=== PATIENT | male | born 1985 | race Caucasian/White ===

== ENCOUNTER 2020-05-22 07:02 | Emergency (ER) | payer MEDICARE, MEDICAID, SELFPAY ==
[2020-05-22 07:03] VITALS: BP 195/122; PULSE 67; RESP 20; TEMP 36.6; O2SAT 99; BMI 48.8
--- NOTE | 2020-05-22 07:08 | ECG_ITS ---
[facility] Test Date: 2020-05-22 Pat Name: Jasson Gutierrez Department: Room: Gender: Male Dominatrix: : 1985 Requested By: Ayanna Chau Order Number: [id number] Shayne MD: Tona Parra M.D. Measurements Intervals [place] Rate: 65 P: 58 [place]: 169 QRS: 45 QRSD: 110 T: 23 QT: 408 QTc: 427 Interpretive Statements SINUS RHYTHM WITH SINUS ARRHYTHMIA POSSIBLE LEFT ATRIAL ENLARGEMENT [-0.1mV P WAVE IN V1/V2] POSSIBLE RIGHT VENTRICULAR CONDUCTION DELAY [RSR (QR) IN V1/V2] No previous ECG available for comparison Electronically Signed On 05-22-2020 19:17:16 CDT by Tona Parra M.D. [id number]
--- NOTE | 2020-05-22 07:08 | US_ITS ---
WS: [id number] ULTRASOUND ABDOMEN LIMITED CLINICAL INFORMATION: abd pain COMPARISON: None. FINDINGS: Technically difficult examination due to body habitus Liver Size: Enlarged Craniocaudal length: 19.0 cm. Echogenicity: Coarse Surface nodularity: None. Mass (size and location): None. Bile ducts Intrahepatic ducts: Normal. Hydropic gallbladder Cholelithiasis Gallstones: Present Gallbladder sludge: None. Gallbladder wall thickening: None. Pericholecystic fluid: None. Sonographic Lynn sign: Absent. Pancreas Normal as visualized. Right kidney: Normal. Hydronephrosis: None. Size: 13.0 cm x 5.4 cm x 6.1 cm. Abdominal aorta and IVC Visualized portions are normal. Ascites: None. US/US abdomen limited [id number] IMPRESSION: 1. Fatty enlarged liver. 2. Cholelithiasis with gallbladder distention. No gallbladder wall thickening. 3. Common bile duct not identified. 4. No hydronephrosis in right kidney 5. Technically difficult examination due to body habitus.
--- NOTE | 2020-05-22 07:08 | XRR_ITS ---
PROCEDURE INFORMATION: Exam: XR Chest, 1 View Exam date and time: 05/22/2020 7:21 AM Age: 34 years old Clinical indication: Abd pain TECHNIQUE: Imaging protocol: XR of the chest Views: 1 view. COMPARISON: No relevant prior studies available. FINDINGS: Lungs: No lung consolidation or pulmonary edema. Evidence of prior left-sided pulmonary granulomatous disease. Pleural space: No pleural effusion or pneumothorax. Heart/Mediastinum: The cardiac silhouette is not enlarged. The mediastinal contours are normal. Bones/joints: No acute osseous abnormality. Intraperitoneal space: No pneumoperitoneum. XR/XR chest 1V portable [id number] IMPRESSION: No acute abnormality.
--- NOTE | 2020-05-22 07:10 | W.ED.ABDPA2 ---
HPI - Abdominal Pain General: Chief Complaint: Abdominal Pain Stated Complaint: ABD PAIN Time Seen by Provider: 05/22/20 07:05 Source: patient and EMS Mode of arrival: EMS Limitations: no limitations History of Present Illness: HPI narrative: 34-year-old male states of last 4 to 5 hours had epigastric abdominal pain. He states he ate a large meal last night including deer meat and rooms. He states that he has had this sharp pain in the epigastric region. Denies any vomiting. He denies any chest pain. He has had no fever. MD elicited complaint: abdominal pain Pertinent past history: none Onset (ago): hour(s) Location: Epigastric Severity: moderate Quality: sharp Radiation: none Migration to: no migration Exacerbating factors: eating Relieving factors: nothing Associated Symptoms: Reports nausea; Denies chills, dysuria and fever(s) Review of Systems Const: Denies: fever(s), chills, body aches or change in appetite Eyes: Denies: blurry vision or eye discomfort ENMT: Denies: throat pain or dental pain Card: Denies: chest pain Resp: Denies: dyspnea GI: Reports: abdominal pain and nausea : Denies: dysuria Musc: Denies: neck pain or back pain Skin/Breast: Denies: rash Neuro: Denies: headache(s) Psych: Denies: depression Dc/Lymph: Denies: easy bruising All/Imm: Denies: urticaria PFSH ED PFSH: Family History Family/Other Cancer Diabetes Hypertension Denies family history of CAD (coronary artery disease) Clotting disorder Dementia Hyperlipidemia Psychiatric illness Chronic kidney disease (CKD) Suicide Anesthesia complication Bleeding disorder Family history of premature coronary artery disease Lung disease Stroke Social History Smoking and tobacco status: never smoked Alcohol intake: never Current occupational status: disabled Physical Exam Const: COMMON NORMALS: no acute distress, patient oriented x3 and healthy appearing HENMT: COMMON NORMALS: normocephalic and atraumatic HEAD & SCALP: normocephalic and atraumatic Eye: COMMON NORMALS: Equal, round and reactive pupils present and EOMs intact bilaterally PUPIL: Yes Equal, round and reactive pupils present Neck/C-Spine: COMMON NORMALS: full ROM and supple Chest: COMMONS NORMALS: normal inspection of the chest and normal palpation of entire chest wall Resp: COMMON NORMALS: normal respiratory effort, No retractions, No use of accessory muscles and clear to auscultation bilaterally AUSCULTATION: clear to auscultation bilaterally Cardio: COMMON NORMALS: regular rate, regular rhythm and No murmurs present (Cardio) RATE: regular rate RHYTHM: regular rhythm GI: COMMON NORMALS: Normal to inspection, nondistended, normoactive bowel sounds present, Soft to palpation and no masses PALPATION: Yes Soft to palpation OTHER: Epigastric and right upper quadrant tenderness Extremity: COMMON NORMALS: normal to inspection and full ROM Neuro: COMMON NORMALS: patient oriented x3, moves all extremities and no focal motor deficits Psych: COMMON NORMALS: mental status grossly normal, Normal thought process present and cooperative THOUGHT PROCESS: Normal thought process present Skin: COMMON NORMALS: no rashes or lesions noted and no wounds GENERAL SKIN EXAM: no rashes or lesions noted Course Vital Signs: Vital signs: Vital Signs Temperature 97.8 F 05/22/20 07:03 Pulse Rate 84 05/22/20 08:10 Respiratory Rate 22 H 05/22/20 08:50 Blood Pressure 197/117 05/22/20 08:10 Pulse Oximetry 98 05/22/20 08:50 MDM - Abdominal Pain MDM Narrative: Medical decision making narrative: Patient presents with abdominal pain is likely from gallstones. He does have a history of gallstones in the past as well. He has no signs of cholecystitis. Patient's pain here is improved. We will place him on pain meds and set him up follow-up with surgery. He is return if he has any fever vomiting or increased pain. He understands and agrees to this plan. Lab Data: Labs: Lab Results 05/22/20 05/22/20 Range/Units 08:00 08:00 WBC 11.6 H (4.0-10.0) 10^3/ uL RBC 5.61 H (4.1-5.3) 10^6/u L Hgb 17.0 H (11.7-16.6) g/dL Hct 51.5 (42.0-52.0) % MCV 91.8 (80-94) fL MCH 30.3 (28.0-34.0) pg MCHC 33.0 (30.0-36.0) g/dL RDW 12.7 (12.1-15.1) % Plt Count 276 (130-400) 10^3/c mm MPV 10.6 H (7.4-10.4) fL Neut % (Auto) 77.1 % Lymph % (Auto) 18.0 % [place] % (Auto) 4.3 % Eos % (Auto) 0.1 % Baso % (Auto) 0.2 % Neut # (Auto) 8.92 H (1.8-7.7) 10^3/u L Lymph # (Auto) 2.1 (0.8-4.8) 10^3/u L [place] # (Auto) 0.5 (0.2-0.9) 10^3/u L Eos # (Auto) 0.0 (0.0-0.8) 10^3/u L Baso # (Auto) 0.0 (0.0-0.1) 10^3/u L Nucleated RBC % (a uto) 0 % Nucleated RBCs # 0.0 /100WBC Sodium 140 (136-145) mmol/L Potassium 4.0 (3.5-5.1) mmol/L Chloride 101 (98-107) mmol/L Carbon Dioxide 29 (22-29) mmol/L Anion Gap 14.0 (5-19) BUN 13 (6-20) mg/dL Creatinine 0.8 (0.7-1.2) mg/dL GFR Calculation 112.0 (90-130) mL/min Glucose 114 (65-115) mg/dL Calculated Osmolal ity 287 (285-295) mOsm/k g Calcium 10.0 (8.5-10.5) mg/dL Total Bilirubin 0.3 (0.15-1.2) mg/dL AST 20 (0-40) U/L ALT 40 (0-41) U/L Alkaline Phosphata se 85 (40-130) IU/L Total Protein 8.1 (6.6-8.7) g/dL Albumin 4.6 (3.5-5.2) g/dL Globulin 3.5 (1.3-4.6) g/dL Lipase 26 (13-60) U/L Imaging Data ^: US: Attestation: I personally reviewed and interpreted this imaging study as follows: My impression: Multiple gallstones with no wall thickening or any signs of cholecystitis. EKG Data ^: EKG 1: Attestation: I personally reviewed and interpreted this EKG as follows: EKG interpretation date: 05/22/20 EKG interpretation time: 07:17 Interpretation: nsr hr [address] or t wave abnormalities qrs 110 qtc 420 Discharge Plan Discharge Patient Disposition: Home, Self-Care Clinical Impression: Gallstones Abdominal pain Qualifiers: Abdominal location: right upper quadrant Qualified Code(s): R10.11 - Right upper quadrant pain Condition: Stable Prescriptions: [place] 5-325 mg tablet 1 tab PO Q6H PRN (Reason: pain) Qty: 14 RF: 0 ondansetron 4 mg tablet,disintegrating 4 mg PO Q6H PRN (Reason: nausea and vomiting) Qty: 14 RF: 0 No Action ibuprofen 200 mg Tablet 200 - 800 mg PO PRN RF: 0 Discharge Orders: Discharge Order (Routine); Ordered 05/22/20 Ordered By: Ayanna Chau Referrals: Nash Abarca DO [Primary Care Provider] - Sandeep Joyner MD [Physician] - 1-3 days Discharge Diet: Advance as tolerated Discharge Activity: Resume usual activity Patient Instructions: Biliary Colic (ED), Abdominal Pain (ED) Coding Level of Care Code ED Telecommunications Line Mechanic for Chg Fwd Exam Comprehensive
--- NOTE | 2020-05-22 07:33 | PC.NURSE ---
utlra sound at bedside, unable to complete nurse tasks until ultrasoud complete
[2020-05-22] MEDS: sodium chloride 0.9% 1,000 ML 999 ML IV (08:03)
[2020-05-22] MEDS: lidocaine 2% viscous 15 ML, aluminum-mag hydrox-simethicon 30 ML, sucralfate oral liq 1 GM PO (08:03)
[2020-05-22] MEDS: ondansetron 2 mg/ML SDV 2 mL 4 MG IVP (08:06)
[2020-05-22 08:10] VITALS: BP 197/117; PULSE 84; RESP 16; O2SAT 97
[2020-05-22 08:19] LABS: Basophils % 0.2 %; Eosinophils % 0.1 %; Hematocrit 51.5 % (42.0-52.0); Lymphocytes # 2.1 10^3/uL (0.8-4.8); Mean Corpuscular Hemoglobin 30.3 pg (28.0-34.0); Mean Corpuscular Volume 91.8 fL (80-94); Mean Platelet Volume 10.6 fL (7.4-10.4); Monocytes # 0.5 10^3/uL (0.2-0.9); Monocytes % 4.3 %; Neutrophils # 8.92 10^3/uL (1.8-7.7); Neutrophils % 77.1 %; Nucleated Red Blood Cells % 0 %; Platelet Count 276 10^3/cmm (130-400); Red Blood Count 5.61 10^6/uL (4.1-5.3); Red Cell Distribution Width 12.7 % (12.1-15.1); White Blood Count 11.6 10^3/uL (4.0-10.0)
--- NOTE | 2020-05-22 08:23 | PC.NURSE ---
Patient asked nurse to update his mother for him. Upon updating his mother of what tests and treatment we are doing, mother stated he has previously had these same symptoms, was taken to [facility] and diagnosed then with gallstones and physician stated the patient needed his gallbladder removed. However, patient refused surgery. When patient was asked specifically about a gallbladder/stone, or similar episodes, patient denied.
[2020-05-22] MEDS: hyDRALAzine 20 mg/mL INJ 1 mL 10 MG IVP (08:25)
[2020-05-22 08:42] LABS: Alanine Aminotransferase 40 U/L (0-41); Albumin Level 4.6 g/dL (3.5-5.2); Alkaline Phosphatase 85 IU/L (40-130); Aspartate Amino Transferase 20 U/L (0-40); Blood Urea Nitrogen 13 mg/dL (6-20); Carbon Dioxide 29 mmol/L (22-29); Chloride 101 mmol/L (98-107); Globulin 3.5 g/dL (1.3-4.6); Glucose 114 mg/dL (65-115); Lipase 26 U/L (13-60); Osmolality Calculated 287 mOsm/kg (285-295); Sodium 140 mmol/L (136-145); Total Bilirubin 0.3 mg/dL (0.15-1.2); Total Protein 8.1 g/dL (6.6-8.7)
[2020-05-22 08:50] VITALS: RESP 22; O2SAT 98
[2020-05-22] MEDS: HYDROmorphone 1 mg/mL INJ 1 mL IVP (08:50)
[2020-05-22 09:43] VITALS: BP 188/108; PULSE 106; RESP 18; O2SAT 98
--- NOTE | 2020-05-22 15:48 | DCPLANNER ---
international project manager had message to schedule a follow up appointment for patient with general surgery. international project manager called [facility], spoke with Steph. A follow up appointment has been scheduled for Monday, May 25, [address] at 11:[address] Joyner. Clinic will call patient with appointment information.
--- NOTE | 2020-05-25 14:04 | DCPLANNER ---
Patient did attend the appointment scheduled for 05.25.20 with [facility].
== END 2020-05-22 09:50 | disposition home or self-care (01) ==
PROVIDERS: Emergency Provider Emergency Medicine; PCP Family Medicine
DX: K80.80 Other cholelithiasis without obstruction (principal)
CPT/HCPCS: 12345; 71045; 76705; 80053; 83690; 85025; 93005; 96361; 96374; 96375; 99283; 99284; J0360; J1170; J2405; J7030